=== PATIENT | female | born 1960 | race Caucasian/White ===

== ENCOUNTER 2016-12-07 16:03 | Emergency (ER) | payer BC ==
[2016-12-07 16:47] VITALS: BP 126/76
--- NOTE | 2016-12-07 17:49 | UC ---
Complaint Female HPI - HPI Summary HPI Summary: vaginal itching x [address] Pierre who prescribed estrogen cream and it didn't really help. Also has groin, thigh redness. Pt still gets menses every other month, last one was 11/27/2016, normal for her. . Just itching, no vag discharge. Queen had this in the past and it was yeast infx and UTI. No fever. No abd pain. - History Of Current Complaint Chief Complaint: [facility] Stated Complaint: PERSONAL Time Seen by Provider: 12/07/16 17:48 Hx Obtained From: Patient Hx Last Menstrual Period: 11/27/16 Onset/Duration: Gradual Onset, Lasting Days, Still Present, Worse Since - Timing: Constant Severity Initially: Moderate Severity Currently: Moderate Pain Intensity: 6 Pain Scale Used: 0-10 Numeric Character: Burning - itching Aggravating Factor(s): [place], Urination Alleviating Factor(s): Nothing Associated Signs And Symptoms: Positive: Genital Swelling. Negative: Fever, Back Pain, Vaginal Bleeding/Discharge, Vaginal Discharge, Nausea, Vomiting(# Of Episodes =) - Allergies/Home Medications Allergies/Adverse Reactions: Allergies Allergy/AdvReac Type Severity Reaction Status Date / Time Penicillins Allergy Hives Verified 12/07/16 16:48 Prochlorperazine Allergy Anaphylatic Verified 12/07/16 16:48 [From Compazine] Shock Red Dye Allergy Palpitation Verified 12/07/16 16:49 s Sulfa Antibiotics Allergy Hives Verified 12/07/16 16:48 Home Medications: Home Medications Zolmitriptan [Zomig] 2.5 mg PO DAILY PRN 12/07/16 [History Confirmed 12/07/16] amLODIPine TAB* [Norvasc 5 mg TAB*] 5 mg PO DAILY 12/07/16 [History Confirmed ] PMH/Surg Hx/FS Hx/Imm Hx Cardiovascular History Of: Reports: Hypertension Cancer History Of: Denies: Breast Cancer - Surgical History Surgical History: Yes Surgery Procedure, Year, and Place: gallbladder - Family History Known Family History: Positive: Hypertension, Diabetes, Other - stroke - Social History Occupation: Employed Full-time - teacher Lives: With Family Alcohol Use: None Substance Use Type: None Smoking Status (MU): Never Smoked Tobacco Review of Systems Constitutional: Negative Skin: Negative Eyes: Negative ENT: Negative Respiratory: Negative Cardiovascular: Negative Gastrointestinal: Negative Genitourinary: Dysuria Motor: Negative Neurovascular: Negative Musculoskeletal: Negative Neurological: Negative Psychological: Negative All Other Systems Reviewed And Are Negative: Yes Physical Exam Triage Information Reviewed: Yes Appearance: Well-Appearing, Well-Nourished, Pain Distress Vital Signs: Initial Vital Signs Temp 98.6 F 12/07/16 16:42 Pulse 84 12/07/16 16:42 Resp 16 12/07/16 16:42 BP 126/76 12/07/16 16:42 Pulse Ox 100 12/07/16 16:42 Vital Signs Reviewed: Yes Eyes: Positive: Conjunctiva Clear ENT: Positive: Normal ENT inspection Neck: Positive: Supple Respiratory: Positive: No respiratory distress Cardiovascular: Positive: RRR, Pulses Normal, Brisk Capillary Refill Abdomen Description: Positive: Nontender, No Organomegaly, Soft, Other: - / pelvic exam: vulvae red and swollen and tender to touch, confluent erythematous rash in groin creases, no blisters, min white vag discharge, sent for Affirm. ( Pt is with of 35 years and is not worried about STDs). Uterus and adnexae, nontender, no masses. Cervix: eroded, nontender. Negative: CVA Tenderness (R), CVA Tenderness (L), Distended, Guarding, Hepatomegaly, McBurney' s Point Tenderness, Peritoneal Signs, Pulsatile Mass, Splenomegaly Bowel Sounds: Positive: Present Musculoskeletal: Positive: Strength Intact, ROM Intact Neurological: Positive: Alert, Muscle Tone Normal Psychological Exam: Normal Skin Exam: Normal Complaint Female Dx - Course Course Of Treatment: UA with blood (probable from external vulvae irritation). vag disch sent for Affirm testing. will treat empirically as yeast infection while awaiting test results. will also send urine for culture due to hematuria and dysuria, but will not give antibiotics with empiric dx of yeast vulvovaginitis. - Differential Dx/Diagnosis Differential Diagnosis/HQI/PQRI: Cervicitis, Urinary Tract Infection, Other - yeast vaginitis Provider Diagnoses: yeast vulvovaginitis. dysuria. hematuria. HTN in poor control Discharge - Discharge Plan Condition: Stable Disposition: HOME Prescriptions: Fluconazole 150 MG (NF) [Diflucan 150 mg (NF)] 150 mg PO ONCE #4 tab Patient Education Materials: Vulvovaginal Candidiasis (ED) Forms: *Work Release Referrals: Ochoa Fox MD [Primary Care Provider] - 2 Days Additional Instructions: You may also use monistat cream on your external vulvae. You may also continue the estrogen cream vaginally as directed. We have sent tests on the vaginal samples for bacterial vaginosis and yeast. We will notify you if you need additional treatment based on those results. We have also sent a urine culture and will notify you if you need antibiotics based on this culture. See Dr. Pierre or return to urgent care if any new or worsening symptoms.
[2016-12-07] MEDS ORDERED: Fluconazole 100 MG TAB* TAB PO ONE (18:49)
--- NOTE | 2016-12-09 10:34 | UC ---
Progress - Progress Note Progress Note: pt sent home on diflucan. there was minimal white d/c. BV positive but note does not suggest clinical BV. they should call back in 5 days should the diflucan not work and then we can call in flagyl.
== END 2016-12-07 19:09 | disposition home or self-care (01) ==
LOC: UCCORT 16:03
DX: B37.3 Candidiasis of vulva and vagina (principal); R30.0 Dysuria; R31.9 Hematuria, unspecified; I10 Essential (primary) hypertension; Z88.1 Allergy status to other antibiotic agents; Z88.0 Allergy status to penicillin
CPT/HCPCS: 81003; 84702; 87086; 87480; 87510; 99212; A9270-GY; G0463